=== PATIENT | female | born 1955 | race Caucasian/White ===

== ENCOUNTER 2022-04-07 19:23 | Inpatient (IN) | payer MEDICARE ==
[~2022-04-07] VITALS: Ht 160 cm; Wt 127.9 kg
[2022-04-07 20:08] LABS: BASOPHILS % 0.5 % (0.0-1.0); EOSINOPHILS # (AUTO) 0.2 (0.0-0.4); EOSINOPHILS % 5.5 % (0.0-6.0); HEMOGLOBIN 9.6 g/dL (12.0-16.0); LYMPHOCYTES # (AUTO) 1.2 (1.0-3.2); LYMPHOCYTES % 28.4 % (18.0-39.1); MEAN CORPUSCULAR HEMOGLOBIN 25.7 pg (28-32); MEAN CORPUSCULAR VOLUME 85.6 fL (81-99); MONOCYTES # (AUTO) 0.3 (0.2-0.8); MONOCYTES % 6.9 % (4.4-11.3); NEUTROPHILS # (AUTO) 2.6 (2.1-6.9); NEUTROPHILS % 58.5 % (38.7-80.0); PLATELET COUNT 386 x10e3/uL (140-360); RED BLOOD COUNT 3.74 x10e6/uL (3.6-5.1); RED CELL DISTRIBUTION WIDTH 19.9 % (11.7-14.4)
[2022-04-07] MEDS ORDERED: Vancomycin IV 1 GM in SODIUM CHLORIDE 0.9% 250ML 250 ML IV STA (20:13)
[2022-04-07 20:44] LABS: ALANINE AMINOTRANSFERASE 10 IU/L (0-55); ALBUMIN 2.7 g/dL (3.5-5.0); ALBUMIN/GLOBULIN RATIO 0.4 (0.8-2.0); ALKALINE PHOSPHATASE 68 IU/L (40-150); ANION GAP 16.2 mmol/L (8-16); BLOOD UREA NITROGEN 16 mg/dL (7-26); BUN/CREATININE RATIO 18 (6-25); CALCIUM 8.4 mg/dL (8.4-10.2); CARBON DIOXIDE 23 mmol/L (22-29); CHLORIDE 100 mmol/L (98-107); CREATINE KINASE 61 IU/L (29-168); CREATININE, SERUM 0.87 mg/dL (0.57-1.11); GLUCOSE 93 mg/dL (74-118); POTASSIUM 4.2 mmol/L (3.5-5.1); SODIUM 135 mmol/L (136-145)
[2022-04-08] VITALS (7 sets, daily range): BP systolic 105–167; BP diastolic 55–87
[2022-04-08 06:58] LABS: BASOPHILS % 0.4 % (0.0-1.0); EOSINOPHILS # (AUTO) 0.2 (0.0-0.4); EOSINOPHILS % 4.4 % (0.0-6.0); HEMATOCRIT 28.6 % (34.2-44.1); HEMOGLOBIN 8.6 g/dL (12.0-16.0); LYMPHOCYTES # (AUTO) 1.1 (1.0-3.2); LYMPHOCYTES % 21.9 % (18.0-39.1); MEAN CORPUSCULAR HEMOGLOBIN 25.4 pg (28-32); MEAN CORPUSCULAR HGB CONC 30.1 g/dL (31-35); MEAN CORPUSCULAR VOLUME 84.6 fL (81-99); MONOCYTES # (AUTO) 0.6 (0.2-0.8); NEUTROPHILS # (AUTO) 3.2 (2.1-6.9); NEUTROPHILS % 61.9 % (38.7-80.0); PLATELET COUNT 312 x10e3/uL (140-360); RED BLOOD COUNT 3.38 x10e6/uL (3.6-5.1); RED CELL DISTRIBUTION WIDTH 19.8 % (11.7-14.4)
[2022-04-08 07:27] LABS: ALBUMIN 2.3 g/dL (3.5-5.0); ALBUMIN/GLOBULIN RATIO 0.4 (0.8-2.0); ANION GAP 12.1 mmol/L (8-16); CREATINE KINASE 43 IU/L (29-168); CREATININE, SERUM 0.72 mg/dL (0.57-1.11); POTASSIUM 4.1 mmol/L (3.5-5.1)
[2022-04-08] MEDS ORDERED: SIMETHICONE 80 MG CHEW PO PRN (08:15)
[2022-04-08] MEDS ORDERED: TRAMADOL HCL 50 MG TAB PO PRN (08:15)
[2022-04-08] MEDS ORDERED: MELATONIN 5 MG TABLET PO PRN (08:15)
[2022-04-08] MEDS ORDERED: POTASSIUM CHLORIDE 20 MEQ TAB CR PO PRN (08:15)
[2022-04-08] MEDS ORDERED: Vancomycin IV 1 GM in SODIUM CHLORIDE 0.9% 250ML 250 ML IV SCH (08:15)
[2022-04-08] MEDS ORDERED: ALBUTEROL/IPRATROPIUM 3 ML NEB NEB PRN (08:15)
[2022-04-08] MEDS ORDERED: ONDANSETRON HCL INJ 2MG/ML 2ML 2 MG/ML VIAL IV PRN (08:15)
[2022-04-08] MEDS ORDERED: HYDRALAZINE HCL 20 MG/ML VIAL IV PRN (08:15)
[2022-04-08] MEDS ORDERED: DEXTROSE 50% SYRINGE 50 ML IV PRN (08:15)
[2022-04-08] MEDS ORDERED: DOCUSATE SODIUM 100 MG CAP PO PRN (08:15)
[2022-04-08] MEDS ORDERED: BENZONATATE 100 MG CAP PO PRN (08:15)
[2022-04-08] MEDS ORDERED: LIDOCAINE 4% PATCH TP PRN (08:15)
[2022-04-08] MEDS: CLINDAMYCIN PHOS 900MG/ 50ML 50 ML IV SCH ×2 (14:17→22:55)
[2022-04-08] MEDS: ENOXAPARIN SOD INJ 40 MG/0.4 ML SYR SC SCH (17:00)
[2022-04-08] MEDS ORDERED: FUROSEMIDE40 MG PO (20:54)
[2022-04-08] MEDS ORDERED: ZESTRIL40 MG PO (20:54)
[2022-04-08] MEDS: DIPHENHYDRAMINE HCL 25 MG CAP PO PRN (22:55)
[2022-04-08] MEDS: ACETAMINOPHEN 325 MG TAB PO PRN (23:03)
[2022-04-08] MEDS ORDERED: SODIUM CHLORIDE 0.9% 250ML 250 ML ONE (23:31)
[2022-04-09] VITALS (8 sets, daily range): BP systolic 150–159; BP diastolic 54–82
[2022-04-09] MEDS: CLINDAMYCIN PHOS 900MG/ 50ML 50 ML IV SCH ×3 (05:25→22:45)
[2022-04-09 07:07] LABS: BASOPHILS % 0.5 % (0.0-1.0); EOSINOPHILS # (AUTO) 0.4 (0.0-0.4); EOSINOPHILS % 8.9 % (0.0-6.0); HEMATOCRIT 31.7 % (34.2-44.1); HEMOGLOBIN 9.3 g/dL (12.0-16.0); LYMPHOCYTES # (AUTO) 1.1 (1.0-3.2); LYMPHOCYTES % 25.4 % (18.0-39.1); MEAN CORPUSCULAR HEMOGLOBIN 25.5 pg (28-32); MEAN CORPUSCULAR HGB CONC 29.3 g/dL (31-35); MEAN CORPUSCULAR VOLUME 86.8 fL (81-99); MONOCYTES # (AUTO) 0.3 (0.2-0.8); MONOCYTES % 7.3 % (4.4-11.3); NEUTROPHILS # (AUTO) 2.5 (2.1-6.9); NEUTROPHILS % 57.4 % (38.7-80.0); PLATELET COUNT 258 x10e3/uL (140-360); RED BLOOD COUNT 3.65 x10e6/uL (3.6-5.1); RED CELL DISTRIBUTION WIDTH 19.9 % (11.7-14.4)
[2022-04-09 07:29] LABS: ANION GAP 14.1 mmol/L (8-16); CALCIUM 8.3 mg/dL (8.4-10.2); CREATININE, SERUM 0.71 mg/dL (0.57-1.11); POTASSIUM 4.1 mmol/L (3.5-5.1)
[2022-04-09] MEDS: PANTOPRAZOLE SOD 40 MG TABEC PO SCH (08:36)
[2022-04-09] MEDS ORDERED: SODIUM HYPOCHLORITE 0.25% 480 ML SOLN IR ONE (09:00)
[2022-04-09] MEDS: ENOXAPARIN SOD INJ 40 MG/0.4 ML SYR SC SCH (16:41)
[2022-04-09] MEDS: DIPHENHYDRAMINE HCL 25 MG CAP PO PRN (23:13)
[2022-04-09] MEDS: ACETAMINOPHEN 325 MG TAB PO PRN (23:13)
[2022-04-10] VITALS (9 sets, daily range): BP systolic 134–176; BP diastolic 63–86
[2022-04-10] MEDS: CLINDAMYCIN PHOS 900MG/ 50ML 50 ML IV SCH ×3 (06:05→21:26)
[2022-04-10] MEDS: PANTOPRAZOLE SOD 40 MG TABEC PO SCH (07:30)
[2022-04-10] MEDS: FUROSEMIDE INJ 10 MG/ML 2 ML VIAL IV SCH ×2 (09:00→17:00)
[2022-04-10] MEDS ORDERED: SODIUM CHLORIDE 0.9% 250ML 250 ML ONE (14:43)
[2022-04-10] MEDS: ENOXAPARIN SOD INJ 40 MG/0.4 ML SYR SC SCH (17:00)
[2022-04-11] VITALS (7 sets, daily range): BP systolic 156–180; BP diastolic 73–101
[2022-04-11] MEDS: CLINDAMYCIN PHOS 900MG/ 50ML 50 ML IV SCH ×2 (05:58→16:58)
[2022-04-11] MEDS: PANTOPRAZOLE SOD 40 MG TABEC PO SCH (08:30)
[2022-04-11] MEDS: FUROSEMIDE INJ 10 MG/ML 2 ML VIAL IV SCH ×2 (09:00→16:58)
[2022-04-11] MEDS: ENOXAPARIN SOD INJ 40 MG/0.4 ML SYR SC SCH (16:58)
[2022-04-11] MEDS ORDERED: LISINOPRIL 20 MG TAB PO SCH (21:00)
[2022-04-12] VITALS (9 sets, daily range): BP systolic 131–171; BP diastolic 61–97
[2022-04-12] MEDS: CLINDAMYCIN PHOS 900MG/ 50ML 50 ML IV SCH ×3 (00:36→17:07)
[2022-04-12] MEDS: PANTOPRAZOLE SOD 40 MG TABEC PO SCH (08:30)
[2022-04-12] MEDS: FUROSEMIDE INJ 10 MG/ML 2 ML VIAL IV SCH ×2 (08:55→17:07)
[2022-04-12] MEDS: LISINOPRIL 20 MG TAB PO SCH (08:55)
[2022-04-12] MEDS: ENOXAPARIN SOD INJ 40 MG/0.4 ML SYR SC SCH (17:07)
[2022-04-12] MEDS ORDERED: METOPROLOL TARTRATE INJ 1 MG/ML VIAL IV ONE (22:00)
[2022-04-12] MEDS ORDERED: METOPROLOL SUCCINATE 50 MG TAB XL PO ONE (22:00)
[2022-04-12] MEDS ORDERED: METOPROLOL SUCCINATE 50 MG TAB XL ONE (22:11)
[2022-04-12] MEDS ORDERED: METOPROLOL TARTRATE INJ 1 MG/ML VIAL ONE (22:12)
[2022-04-12 22:22] LABS: ABG HCO3 21 mmol/L (22-26); ABG PCO2 36 mmHg (35-45); ABG PH 7.38 (7.35-7.45); ABG PO2 75 mmHg (80-105)
[2022-04-12 22:23] LABS: ABG TCO2 22
[2022-04-13] VITALS (8 sets, daily range): BP systolic 102–141; BP diastolic 59–84
[2022-04-13] MEDS: CLINDAMYCIN PHOS 900MG/ 50ML 50 ML IV SCH ×3 (01:35→17:35)
[2022-04-13 06:42] LABS: BASOPHILS % 0.5 % (0.0-1.0); EOSINOPHILS # (AUTO) 0.6 (0.0-0.4); EOSINOPHILS % 9.9 % (0.0-6.0); HEMATOCRIT 33.1 % (34.2-44.1); LYMPHOCYTES # (AUTO) 1.7 (1.0-3.2); LYMPHOCYTES % 27.5 % (18.0-39.1); MEAN CORPUSCULAR HEMOGLOBIN 25.7 pg (28-32); MEAN CORPUSCULAR HGB CONC 30.2 g/dL (31-35); MEAN CORPUSCULAR VOLUME 85.1 fL (81-99); MONOCYTES # (AUTO) 0.4 (0.2-0.8); MONOCYTES % 7.1 % (4.4-11.3); NEUTROPHILS # (AUTO) 3.3 (2.1-6.9); NEUTROPHILS % 54.5 % (38.7-80.0); PLATELET COUNT 292 x10e3/uL (140-360); RED BLOOD COUNT 3.89 x10e6/uL (3.6-5.1); RED CELL DISTRIBUTION WIDTH 19.9 % (11.7-14.4)
[2022-04-13] MEDS ORDERED: METOPROLOL SUCCINATE 50 MG TAB XL PO ONE (07:15)
[2022-04-13 07:18] LABS: ANION GAP 15.4 mmol/L (8-16); CALCIUM 8.5 mg/dL (8.4-10.2); CREATININE, SERUM 0.94 mg/dL (0.57-1.11); POTASSIUM 4.4 mmol/L (3.5-5.1)
[2022-04-13] MEDS: PANTOPRAZOLE SOD 40 MG TABEC PO SCH (08:28)
[2022-04-13] MEDS: METOPROLOL SUCCINATE 50 MG TAB XL PO SCH ×2 (08:35→17:36)
[2022-04-13] MEDS: LISINOPRIL 20 MG TAB PO SCH (09:00)
[2022-04-13] MEDS: FUROSEMIDE INJ 10 MG/ML 2 ML VIAL IV SCH ×2 (09:00→17:36)
[2022-04-13] MEDS ORDERED: METOPROLOL SUCCINATE 50 MG TAB XL PO SCH (09:00)
[2022-04-13] MEDS ORDERED: METOPROLOL TARTRATE INJ 1 MG/ML VIAL IV PRN (09:15)
[2022-04-13] MEDS: ENOXAPARIN SOD INJ 120 MG/0.8 ML SYR SC SCH ×2 (11:07→21:00)
[2022-04-13] MEDS: DIGOXIN INJ 0.25 MG/ML 2 ML AMP IV SCH ×2 (11:07→14:53)
[2022-04-13] MEDS: AMIODARONE HCL 200 MG TAB PO SCH ×2 (11:07→17:36)
[2022-04-14] VITALS: BP 118/71
[2022-04-14] MEDS: CLINDAMYCIN PHOS 900MG/ 50ML 50 ML IV SCH ×3 (01:00→17:02)
[2022-04-14 04:00] VITALS: BP 134/76
[2022-04-14] MEDS: PANTOPRAZOLE SOD 40 MG TABEC PO SCH (08:00)
[2022-04-14 08:02] VITALS: BP 119/81
[2022-04-14 08:10] VITALS: BP 119/81
[2022-04-14] MEDS: METOPROLOL SUCCINATE 50 MG TAB XL PO SCH ×2 (08:40→17:02)
[2022-04-14] MEDS: LISINOPRIL 20 MG TAB PO SCH (08:40)
[2022-04-14] MEDS: FUROSEMIDE INJ 10 MG/ML 2 ML VIAL IV SCH (08:40)
[2022-04-14] MEDS: AMIODARONE HCL 200 MG TAB PO SCH (08:40)
[2022-04-14] MEDS: ENOXAPARIN SOD INJ 120 MG/0.8 ML SYR SC SCH (08:40)
[2022-04-14 12:28] VITALS: BP 131/75
[2022-04-14] MEDS ORDERED: ELIQUIS5 MG PO (14:03)
[2022-04-14] MEDS ORDERED: METOPROLOL SUCC50 MG PO (14:05)
[2022-04-14] MEDS ORDERED: CLINDAMYCI900 MG/51 IV (14:07)
[2022-04-14] MEDS ORDERED: AMIODARONE HCL200 MG PO (14:09)
[2022-04-14] MEDS ORDERED: AMIODARONE HCL100 MG PO (14:25)
[2022-04-14] MEDS ORDERED: ONDANSETRON HCL 4 MG ORAL DISINTEGRATING TAB PO PRN (14:30)
[2022-04-14 16:02] VITALS: BP 138/65
[2022-04-14] MEDS ORDERED: FUROSEMIDE 20 MG TAB PO SCH (17:00)
[2022-04-14] MEDS ORDERED: APIXABAN 5 MG TABLET PO SCH (17:00)
[2022-04-15] MEDS ORDERED: AMIODARONE HCL 200 MG TAB PO SCH (09:00)
== END 2022-04-14 20:00 | DRG 603 ==
LOC: ER 19:26 → ERHOLD 20:42 → MED/SURG3 21:58
PROVIDERS: ADMIT Internal Medicine; ATTEND Internal Medicine
PROC: 02HV33Z Insertion of Infusion Device into Superior Vena Cava, Percutaneous Approach (ICD-10-PCS; principal; 2022-04-11)
DX: L03.116 Cellulitis of left lower limb (principal); Z68.43 Body mass index [BMI] 50.0-59.9, adult; I89.0 Lymphedema, not elsewhere classified; L03.115 Cellulitis of right lower limb; G89.4 Chronic pain syndrome; E66.01 Morbid (severe) obesity due to excess calories; I10 Essential (primary) hypertension; Z20.822 Contact with and (suspected) exposure to COVID-19; K29.70 Gastritis, unspecified, without bleeding; K21.9 Gastro-esophageal reflux disease without esophagitis; K59.00 Constipation, unspecified; E87.8 Other disorders of electrolyte and fluid balance, not elsewhere classified; D64.9 Anemia, unspecified; I48.91 Unspecified atrial fibrillation; Z91.19 Patient's noncompliance with other medical treatment and regimen
CPT/HCPCS: 36415; 36569; 71045; 80048; 80053; 82550; 82553; 82805; 83605; 83880; 84443; 84484; 85025; 87040; 93005; 94799; 99251; 99284; J0692; J1160; J1650; J1940; J3370; J7050